=== PATIENT | female | born 1990 | race Two or more races ===

== ENCOUNTER 2021-06-09 17:56 | Emergency (ER) | payer MEDICAID, OTHER ==
[~2021-06-09] VITALS: Ht 154.9 cm; Wt 72.6 kg
[2021-06-09 17:58] VITALS: BP 140/91
[2021-06-09 18:43] LABS: Basophils # (auto) 0.1 10 ^3/uL (0-0.2); Eosinophils # (auto) 0.1 10 ^3/uL (0-0.8); Eosinophils % (auto) 1.5 % (0.0-7.0); Hematocrit 39.6 % (36.0-46.0); Hemoglobin 13.2 g/dL (12.2-16.2); Lymphocytes # (auto) 3.4 10 ^3/uL (0.4-5.4); Lymphocytes % (auto) 41.5 % (10.0-50.0); Mean Corpuscular Hemoglobin 30.1 pg (28.0-32.0); Mean Corpuscular Hgb Conc. 33.4 g/dL (32.0-36.0); Monocytes # (auto) 0.4 10 ^3/uL (0-1.3); Neutrophils # (auto) 4.2 10 ^3/uL (1.6-8.6); Nucleated Red Blood Cells % 0.3 %; Red Cell Distribution Width 12.4 % (11.8-14.3); White Blood Cell 8.3 10^3/uL (4.4-10.8)
[2021-06-09 18:54] LABS: Urine Amorphous Crystal FEW /hpf (None Seen); Urine Bacteria FEW /hpf (None Seen); Urine Blood Negative /uL (Negative); Urine Specific Gravity 1.006 (1.001-1.035); Urine WBC <1 /hpf (0 - 5)
[2021-06-09 18:58] LABS: Albumin 3.8 g/dL (3.4-5.0); Calcium 10.3 mg/dL (8.5-10.1); Potassium 3.8 mmol/L (3.5-5.1)
[2021-06-09 19:00] LABS: BUN/Creatinine Ratio 11.8
[2021-06-09 19:02] LABS: Bilirubin, Total 0.2 mg/dL (0.2-1.0); Total Protein 7.6 g/dL (6.4-8.2)
[2021-06-09] MEDS ORDERED: MECLIZINE HCL 25 MG TAB PO ONE (19:30)
== END 2021-06-09 20:39 | disposition home or self-care (01) ==
LOC: ER 17:56
DX: H66.92 Otitis media, unspecified, left ear (principal)
CPT/HCPCS: 36415; 80053; 81001; 84702; 85025; 99283; J8597

== ENCOUNTER 2024-10-08 19:14 | Emergency (ER) | payer MEDICAID ==
[~2024-10-08] VITALS: Ht 157.5 cm; Wt 77.1 kg
[2024-10-08 19:30] VITALS: PULSE 89
[2024-10-08 19:55] LABS: Hematocrit 38.9 % (36.0-46.0); Hemoglobin 12.9 g/dL (12.2-16.2); Mean Corpuscular Hemoglobin 28.7 pg (28.0-32.0); Mean Corpuscular Volume 86.9 fL (80.0-100.0); Nucleated Red Blood Cells % 0.1 %
[2024-10-08 20:05] LABS: Potassium 4.3 mmol/L (3.5-5.1); Sodium 142 mmol/L (136-145)
[2024-10-08 20:06] LABS: Anion Gap 7 (5-15); Carbon Dioxide 28 mmol/L (20-31)
--- NOTE | 2024-10-08 20:06 | ED.PDOC ---
History of Present Illness HPI Comments 34 y/o F presents with c/c abnormal vaginal bleeding, with associated clot production, shortness of breath, generalized weakness, dizziness, and lightheadedness. Patient starting to bleed, again, on 10/05/24 after finishing her last menstrual cycle on 09/24/24. No history of symptoms before in the past. 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 Only significant history of BTL and C-sections. Patient denies any chest pain, palpitations, fever, chills, nausea, vomiting, or further associated symptoms. Chief Complaint: Vaginal Bleed Time Seen by MD: 19:40 Reviewed Notes: Nurses Notes, Medications, Allergies Allergies: Coded Allergies: NO KNOWN ALLERGIES (Unverified , 06/09/21) Information Source: Patient Mode of Arrival: Ambulatory Severity: Moderate Timing: Days Duration: Since onset Prehospital treatment: None Review of Systems: REVIEW OF SYSTEMS: No fever, no chills, HEENT: No neck pain, no blurred vision Cardiac: Lightheadedness. No chest pain. No palpitations. Lungs: Shortness of breath GI: No abdominal pain, no vomiting : Abnormal vaginal bleeding Musculoskeletal: No joint pain , no back pain Skin: No rash, no wound Neuro: Dizziness, weakness, no headache no syncope Vital Signs Vital Signs Date Time Temp Pulse Resp B/P (MAP) Pulse Ox O2 Delivery O2 Flow Rate FiO2 10/08/24 22:09 98.4 16 108/68 (81) 99 98.4 10/08/24 19:30 89 Physical Exam General: Awake, alert and oriented. No acute distress. Skin: Skin in warm, dry and intact without rashes or lesions. HEENT: The head is normocephalic and atraumatic. Conjunctivae are clear without exudates or hemorrhage. Sclera is non-icteric. Neck: Normal range of motion. No JVD. Cardiac: Regular rate Respiratory: No signs of respiratory distress. No Stridor. Extremities: Upper and lower extremities are atraumatic in appearance without deformity. Gastroenterology: Suprapubic abdominal tenderness to palpation Neurological: The patient is awake, alert and oriented to person, place, and time with normal speech. Speech is clear. There is no facial asymmetry. Psychiatric: Appropriate mood and affect. Good judgement and insight. Past Medical History PAST MEDICAL HISTORY: Denies Surgical History: BTL, SPEED OPERATOR History: No Pertinent SPEED OPERATOR History Family History Family History: Reviewed,noncontributory to illness, No family hx of Cancer, No family hx of DM, No family hx of Heart tania, No family hx of HTN, No family hx ofKidney tania, No family hx of Liver tania, No family hx of Lung tania, No family hx of Stroke Social History Smoker: Non-Smoker Alcohol: Denies ETOH Use Drugs: Denies Drug Use Lives In: Other Was a procedure done? Was a procedure done?: No Differential Dx Considerations may include: Differential diagnoses considered include: Abdominal aortic aneurysm, WI, esophageal rupture, intestinal obstruction, mesenteric ischemia, perforated viscus or solid organ rupture, CHF with hepatomegaly, pneumonia, abscess, appendicitis, biliary disease, diverticulitis, gastritis, gastroenteritis, hepatitis, hernia, inflammatory bowel disease, pancreatitis, peptic ulcer disease, urinary tract infection, ureteral colic, constipation, GERD, irritable syndrome, abdominal wall pain, nonspecific abdominal pain, herpes zoster, nephrolithiasis. [ ]Also ruptured ectopic , ovarian torsion/cyst, tubo- ovarian abscess, PID, endometriosis, mittleschmerz. X-Ray, Labs, Meds, VS Vital Signs Date Time Temp Pulse Resp B/P (MAP) Pulse Ox O2 Delivery O2 Flow Rate FiO2 10/08/24 22:09 98.4 16 108/68 (81) 99 98.4 10/08/24 19:30 99.1 89 16 120/74 (89) 98 99.1 Lab Test 10/08/24 20:58 10/08/24 19:45 Range/Units Urine Color Light-yellow Yellow Urine Clarity Turbid H Clear Urine pH 7.5 5.0-9.0 Urine Specific Decker 1.023 1.001-1.035 Urine Protein Negative Negative Urine Ketones Negative Negative Urine Blood 2+ H Negative /uL Urine Nitrite Negative Negative Urine Bilirubin Negative Negative Urine Urobilinogen Normal Negative mg/dL Urine Leukocyte Esterase Negative Negative /uL Urine RBC 147 0 - 4 /hpf Urine Microscopic WBC 1 0-5 /HPF Urine Squamous Epithelial Cells Few <5 /hpf Urine Amorphous Crystals Few None Seen /hpf Urine Bacteria None seen None Seen /hpf Urine Glucose Normal Normal mg/dL Urine Test Negative Negative White Blood Count 8.3 4.4-10.8 10^3/uL Red Blood Count 4.48 4.0-5.20 10^6/uL Hemoglobin 12.9 12.2-16.2 g/dL Hematocrit 38.9 36.0-46.0 % Mean Corpuscular Volume 86.9 80.0-100.0 fL Mean Corpuscular Hemoglobin 28.7 28.0-32.0 pg Mean Corpuscular Hemoglobin Concent 33.1 32.0-36.0 g/dL Red Cell Distribution Width 14.0 11.8-14.3 % Platelet Count 316 140-450 10^3/uL Mean Platelet Volume 9.4 6.9-10.8 fL Neutrophils (%) (Auto) 57.4 37.0-80.0 % Lymphocytes (%) (Auto) 33.0 10.0-50.0 % Monocytes (%) (Auto) 7.3 0.0-12.0 % Eosinophils (%) (Auto) 1.9 0.0-7.0 % Basophils (%) (Auto) 0.4 0.0-2.0 % Neutrophils # (Auto) 4.7 1.6-8.6 10 ^3/uL Lymphocytes # (Auto) 2.7 0.4-5.4 10 ^3/uL Monocytes # (Auto) 0.6 0-1.3 10 ^3/uL Eosinophils # (Auto) 0.2 0-0.8 10 ^3/uL Basophils # (Auto) 0 0-0.2 10 ^3/uL Nucleated Red Blood Cells 0.1 % Prothrombin Time 10.8 9.3-11.8 sec Prothrombin Time INR 1.02 0.9-1.15 Sodium Level 142 136-145 mmol/L Potassium Level 4.3 3.5-5.1 mmol/L Chloride Level 107 98-107 mmol/L Carbon Dioxide Level 28 20-31 mmol/L Anion Gap 7 5-15 Blood Urea Nitrogen 9 9-23 mg/dL Creatinine 1.15 H 0.550-1.02 mg/dL Glomerular Filtration Rate Calc 63 >90 mL/min BUN/Creatinine Ratio 7.8 L 10.0-20.0 Serum Glucose 104 74-106 mg/dL Calcium Level 10.3 8.7-10.4 mg/dL PATIENT: KRISTIAN DOWNSCCT: [id number]: [id number] : 1990 LOC: ER ROOM / BED: / AGE / SEX: 34 / F ADM STATUS: REG ER SERVICE 37 ORDERING PHYSICIAN: DIANA AGARWAL MD PROCEDURE(s): PELUS - PELVIC REASON: Pelvic pain, heavy vaginal bleeding ORDER NUMBER(s): [id number], ACCESSION NUMBER(s): [id number] Procedure: US PELVIC 10/08/2024 08:21 PM Indication: Pelvic pain, heavy vaginal bleeding Comparison: None Technique: Real-time grayscale and color images were obtained . FINDINGS: UTERUS: Anteverted, measuring 9.0 cm in length. Homogeneous myometrium without a discrete lesion. ENDOMETRIAL STRIPE: 0.6 cm in thickness. Homogenous echotexture. No fluid in the endometrial canal. CERVIX: Few subcentimeter simple Nabothian cysts are seen. RIGH OVARY: 2.3 cm in length. 4 mL in volume. Preserved vascular flow. No suspicious lesions identified. Dominant follicles noted. LEFT OVARY: 3.1 cm in length. 6.1 mL in volume. Preserved vascular flow. No suspicious lesions identified. CUL-DE-SAC: No significant fluid noted. OTHER: None. IMPRESSION: 1. No sonographic evidence for an acute intrapelvic process. ATED BY: ATILIO MUKHERJEE MD DICTATED DATE/TIME: 10/08/242105 SIGNED BY: ATILIO MUKHERJEE MD SIGNED DATE/TIME: 10/08/242105 CC: Time of 1ST Reevaluation: 20:10 Reevaluation 1ST: Unchanged Patient Education/Counseling: Need For Follow Up Family Education/Counseling: No Family Present SEPSIS Sepsis Screen Physician Orders Pelvic (10/08/24 19:38) Transvaginal Us Non Ob (10/08/24 ) Vital Signs Date Time Temp Pulse Resp B/P (MAP) Pulse Ox O2 Delivery O2 Flow Rate FiO2 10/08/24 22:09 98.4 16 108/68 (81) 99 98.4 10/08/24 19:30 99.1 89 16 120/74 (89) 98 99.1 Laboratory Tests Test 10/08/24 19:45 White Blood Count 8.3 10^3/uL (4.4-10.8) Departure 1 Departure Time of Disposition: 22:36 Impression: Primary Impression: Abnormal uterine bleeding Disposition: HOME / SELF CARE / HOMELESS Condition: Stable Additional Instructions: ED DISCHARGE INSTRUCTIONS Instructions: Please read all instructions provided in this packet carefully. Although you have been discharged from the Emergency Department, this does not mean that you have a "clean bill of health". No definitive diagnosis for your symptoms has been made today. It is possible that you are in the process of developing a serious illness. This is why you must return to the ED without fail if any new or worsening symptoms (especially if your symptoms include chest pain, trouble breathing, abdominal pain, fever, headache, confusion, trouble seeing, or trouble walking) It is also very important that you see a primary care doctor or sde wi thin the next 3-5 days to follow up. If you are unable to get an appointment, return to the ED for re-evaluation. Copy of your ultrasound report is included below. Vaginal Bleeding (Nonpregnancy): Care Instructions Overview It's common to have bleeding or spotting between periods. Lots of things can cause it. You may bleed because of hormone problems, stress, or ovulation. Fibroids and IUDs (intrauterine devices) can also cause bleeding. If your bleeding or spotting is caused by one of these things and isn't heavy or doesn't happen often, you probably don't need to worry. But in rare cases, infection, cancer, or other serious conditions can cause bleeding. So you may need more tests to find the cause of your bleeding. The doctor has checked you carefully, but problems can develop later. If you notice any problems or new symptoms, get medical treatment right away. Follow-up care is a rawls part of your treatment and safety. Be sure to make and go to all appointments, and call your doctor if you are having problems. It's also a good idea to know your test results and keep a list of the medicines you take. How can you care for yourself at home? Take pain medicines exactly as directed. If the doctor gave you a prescription medicine for pain, take it as prescribed. If you are not taking a prescription pain medicine, ask your doctor if you can take an [id number] medicine. Do not take aspirin, which may make bleeding worse. If your doctor prescribed control pills for your bleeding, take them as directed. Eat foods that are high in iron and vitamin C. Foods high in iron include red meat, shellfish, eggs, beans, and leafy green vegetables. Foods high in vitamin C include citrus fruits, tomatoes, and broccoli. Ask your doctor if you need to take iron pills or a multivitamin. Ask your doctor when it is okay to have sex. When should you call for help? Call 911 anytime you think you may need emergency care. For example, call if: You passed out (lost consciousness). Call your doctor now or seek immediate medical care if: You have severe vaginal bleeding. You are dizzy or lightheaded, or you feel like you may faint. You have new or worse belly or pelvic pain. Watch closely for changes in your health, and be sure to contact your doctor if: Your bleeding gets worse. You think you might be . You do not get better as expected. Credits for Vaginal Bleeding (Nonpregnancy): Care Instructions Current as of: August 03, 2023 Author: [facility] Staff Clinical Review Board All [facility] education is reviewed by a team that includes physicians, nurses, advanced practitioners, registered dieticians, and other healthcare professionals. Procedure: US PELVIC 10/08/2024 08:21 PM Indication: Pelvic pain, heavy vaginal bleeding Comparison: None Technique: Real-time grayscale and color images were obtained . FINDINGS: UTERUS: Anteverted, measuring 9.0 cm in length. Homogeneous myometrium without a discrete lesion. ENDOMETRIAL STRIPE: 0.6 cm in thickness. Homogenous echotexture. No fluid in the endometrial canal. CERVIX: Few subcentimeter simple Nabothian cysts are seen. RIGH OVARY: 2.3 cm in length. 4 mL in volume. Preserved vascular flow. No suspicious lesions identified. Dominant follicles noted. LEFT OVARY: 3.1 cm in length. 6.1 mL in volume. Preserved vascular flow. No suspicious lesions identified. CUL-DE-SAC: No significant fluid noted. OTHER: None. IMPRESSION: 1. No sonographic evidence for an acute intrapelvic process. Comments Patient felt stable for discharge home. Advised prompt follow up with the primary care provider or sde for further evaluation. Extensive evaluation was performed in attempt to identify or rule out: (See differential diagnosis section) The following tests were ordered, and results were reviewed by me and discussed with patient: (See diagnostic results section) The following test were independently interpreted by me: N/A I reviewed and agreed with the following test results read by other providers: Pelvic ultrasound I reviewed the following notes from the pt's past medical encounters: June 09, 2021 encounter for left otitis media Additional information was gathered from interviewing the following independent historians: N/A Discussion of management or test interpretation with external physician/other qualified health care team assistant: N/A Decision regarding hospitalization or escalation of hospital level of care: Risks and benefits of admission for further treatment of patient's condition was considered however due to patient's stable condition patient will be discharged to follow up closely or return to care for worsening of condition or inability to follow up. Critical Care Note Critical Care Time?: No Stability Stability form required: No Heart Score Heart Score: Heart Score Response (Comments) Value History N/A 0 EKG N/A 0 Age N/A 0 Risk Factors N/A 0 Troponin N/A 0 Total 0 I personally scribed for DIANA AGARWAL MD ([email or web address]) on 10/08/24 at 20:06. Electronically submitted by Kole De La Garza ([email or web address]). DIANA AGARWAL MD Oct 08, 2024 20:06
[2024-10-08 20:07] LABS: Calcium 10.3 mg/dL (8.7-10.4)
[2024-10-08 20:10] LABS: INR 1.02 (0.9-1.15); Prothrombin Time 10.8 sec (9.3-11.8)
[2024-10-08 20:11] LABS: Glucose 104 mg/dL (74-106)
[2024-10-08 20:12] LABS: BUN/Creatinine Ratio 7.8 (10.0-20.0); Blood Urea Nitrogen 9 mg/dL (9-23); Chloride 107 mmol/L (98-107)
--- NOTE | 2024-10-08 21:08 | DVH ---
Procedure: US PELVIC 10/08/2024 08:21 PM Indication: Pelvic pain, heavy vaginal bleeding Comparison: None Technique: Real-time grayscale and color images were obtained . FINDINGS: UTERUS: Anteverted, measuring 9.0 cm in length. Homogeneous myometrium without a discrete lesion. ENDOMETRIAL STRIPE: 0.6 cm in thickness. Homogenous echotexture. No fluid in the endometrial canal. CERVIX: Few subcentimeter simple Nabothian cysts are seen. RIGH OVARY: 2.3 cm in length. 4 mL in volume. Preserved vascular flow. No suspicious lesions identi fied. Dominant follicles noted. LEFT OVARY: 3.1 cm in length. 6.1 mL in volume. Preserved vascular flow. No suspicious lesions ident ified. CUL-DE-SAC: No significant fluid noted. OTHER: None. IMPRESSION: 1. No sonographic evidence for an acute intrapelvic process.
[2024-10-08 21:34] LABS: Urine Amorphous Crystal FEW /hpf (None Seen); Urine Protein, UAD Negative (Negative)
[2024-10-08 22:09] VITALS: BP 108/68; RESP 16; TEMP 98.4; O2SAT 99
== END 2024-10-08 23:05 | disposition home or self-care (01) ==
LOC: ER 19:14
DX: N93.9 Abnormal uterine and vaginal bleeding, unspecified (principal); R06.02 Shortness of breath; R42 Dizziness and giddiness; Z98.51 Tubal ligation status; Z98.890 Other specified postprocedural states
CPT/HCPCS: 36415; 76830; 76856; 80048; 81001; 81025; 85025; 85610